=== PATIENT | male | born 1930 | race Caucasian/White ===

== ENCOUNTER 2017-02-15 11:50 | Observation (INO) | payer MEDICARE, SELFPAY ==
[~2017-02-15] VITALS: Ht 175.3 cm; Wt 94.0 kg
[2017-02-15 12:24] LABS: BASO % 0.3 % (0.2-1.2); EOS # 0.1 10_X3_uL (0.0-0.5); EOS % 1.4 % (0.8-7.0); GRAN # 5.3 10_X3_uL (1.8-5.4); GRAN % 68.2 % (34.0-67.9); HEMATOCRIT 40.3 % (40-51); HEMOGLOBIN 12.5 g/dL (13.7-17.5); LYMPH # 1.4 10_X3_uL (1.3-3.6); LYMPH % 18.5 % (21.8-53.1); MEAN CORPUSCULAR HEMOGLOBIN 25.3 pg (27.0-33.0); MEAN CORPUSCULAR VOLUME 81.6 fL (79-92); MEAN PLATELET VOLUME 10.9 fl (7.5-11.5); MONO # 0.9 10_X3_uL (0.3-0.8); MONO % 11.6 % (5.3-12.2); PLATELET COUNT 185 x10_3/uL (163-337); RED BLOOD COUNT 4.94 x10_6/uL (4.6-6.1); RED CELL DISTRIBUTION WIDTH 18.5 % (11.6-14.4); WHITE BLOOD COUNT 7.8 x10_3/uL (4.2-9.1)
[2017-02-15 12:43] LABS: ARTERIAL BLD GAS O2 SATURATION 96.9 % (94-98); ARTERIAL BLOOD GAS BASE EXCESS -0.9 mmol/L (-2.0-3.0); ARTERIAL BLOOD GAS HCO3 23.2 mmol/L (22-26); ARTERIAL BLOOD GAS PCO2 38.7 mmHg (35-48)
[2017-02-15 12:57] LABS: ALBUMIN 3.7 gm/dL (3.4-5.0); ALKALINE PHOSPHATASE 71 U/L (50-136); ALT/SGPT 31 U/L (7.53-40.17); AST/SGOT 29 U/L (6.66-35.34); BILIRUBIN,TOTAL 0.92 mg/dL (0.0-1.0); CALCIUM 9.2 mg/dL (8.7-10.7); CARBON DIOXIDE 26 mmol/L (21-32); CREATINE KINASE 47 U/L (35-232); CREATININE 0.8 mg/dL (0.6-1.3); GLUCOSE,RANDOM 100 mg/dL (70-99); POTASSIUM 4.7 mmol/L (3.5-5.1); SODIUM 140 mmol/L (136-145); TOTAL PROTEIN 7.1 gm/dL (6.4-8.2)
[2017-02-15 12:58] LABS: BLOOD UREA NITROGEN 29 mg/dL (7-18)
[2017-02-15 15:37] LABS: INR 1.3 (0.9-1.1); PARTIAL THROMBOPLASTIN TIME 26.8 SECONDS (21.3-29.3); PROTHROMBIN TIME (PATIENT) 13.2 SECONDS (9.9-11.1)
[2017-02-15 15:59] LABS: BILIRUBIN,DIRECT < 0.20 mg/dL (0.0-0.30); DIGOXIN < 0.3 ng/ml (0.90-2.00)
[2017-02-15 20:38] LABS: CKMB 3.6 ng/ml (0.0-5.0); TROP-I < 0.30 NG/ML (0.00-0.30)
== END 2017-02-15 23:05 | disposition short-term general hospital (02) ==
LOC: ER 11:50 → MS 14:14 → UNDODEPER 02-16 11:13
PROVIDERS: Family Medicine; ADMIT Family Medicine
DX: I47.2 Ventricular tachycardia (principal); I50.9 Heart failure, unspecified; Z95.810 Presence of automatic (implantable) cardiac defibrillator; E87.70 Fluid overload, unspecified; I95.9 Hypotension, unspecified; I25.2 Old myocardial infarction; Z95.1 Presence of aortocoronary bypass graft; I48.91 Unspecified atrial fibrillation; R53.1 Weakness; I10 Essential (primary) hypertension; J44.9 Chronic obstructive pulmonary disease, unspecified; Z90.49 Acquired absence of other specified parts of digestive tract; Z85.038 Personal history of other malignant neoplasm of large intestine; F17.220 Nicotine dependence, chewing tobacco, uncomplicated; R42 Dizziness and giddiness; R11.0 Nausea; F41.9 Anxiety disorder, unspecified; F32.9 Major depressive disorder, single episode, unspecified; Z79.899 Other long term (current) drug therapy; Z79.82 Long term (current) use of aspirin
CPT/HCPCS: 36415; 36600; 71010; 80053; 80162; 82248; 82550; 82553; 82803; 83605; 83735; 83880; 84443; 85025; 85610; 85730; 86738; 87400; 87449; 93005; 96374; 96375; 99070; 99284; 99285-25; G0378